=== PATIENT | male | born 1970 | race Caucasian/White ===

== ENCOUNTER 2019-12-16 03:45 | Emergency (ER) | payer SELFPAY ==
--- NOTE | ~2019-12-16 | CT_ITS ---
EXAMINATION: CT brain wo con INDICATION: Right arm and leg weakness, ectasia COMPARISON: None TECHNIQUE: Standard unenhanced head CT. The dose-length product (DLP) was 908.00 mGy-cm. The mA was a djusted according to patient size. Iterative reconstruction technique was employed. FINDINGS: Motion artifact mildly limits the examination. There is questionable hyperdense left middle cerebral artery sign with possible loss of arcos-white differentiation in the left temporal lobe and left middle cerebral artery distribution. Hypoattenuation in the right cerebellum likely reflects dony or infarction. There is no intracranial hemorrhage or abnormal mass lesion. The ventricles are normal . There is no abnormal mass effect or midline shift. The basal cisterns are patent. The orbits are no rmal. The paranasal sinuses, mastoids and calvarium are normal. IMPRESSION: 1. Possible left middle cerebral artery distribution infarction. These findings were discussed with Aram Alvarez MD in the Emergency Department at 0443 hours on 12/16/2019 by the [employer] gist. Reviewed, dictated and finalized at location A. IMPRESSION: 1. Possible left middle cerebral artery distribution infarction. These findings were discussed with Dr. Juliocesar Alvarez MD in the Emergency Department at 0 443 hours on 12/16/2019 by the [employer] Radiologist.
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
[2019-12-16 03:45] VITALS: BP 148/88; PULSE 79; RESP 20; TEMP 35.9; O2SAT 97
--- NOTE | 2019-12-16 03:56 | ECG_ITS ---
Measurements Intervals [place] Rate: 75 P: 39 [place]: 152 QRS: 42 QRSD: 107 T: 83 QT: 376 QTc: 423 Interpretive Statements SINUS RHYTHM BORDERLINE T WAVE ABNORMALITY- LATERAL LEADS BASELINE ARTIFACT- I, II, III, AVR, AVL, AVF, V4-V5 BORDERLINE ECG Electronically Signed On 12-16-2019 8:02:44 CDT by Prakash Travis D.O.
[2019-12-16 04:19] LABS: INR 1.1; Partial Thromboplastin Time 22.6 SEC (22.3-31.6); Prothrombin Time 10.9 Seconds (9.64-11.0)
[2019-12-16 04:19] LABS: Add Urine Microscopic? NO; Appearance Urine Clear (Clear); Bilirubin Urine Negative (Negative); Blood Urine Negative (Negative); Color Urine Yellow (Yellow); Glucose Urine UA Negative (Negative); Ketones Urine Negative (Negative); Leukocyte Esterase Ur Negative LEU/UL (Negative); Nitrate Urine Negative (Negative); Protein Urine Negative (Negative); Specific Grav Ur >= 1.030 (1.010-1.020); pH Urine 5.5 (5.0-8.0)
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
[2019-12-16 04:20] LABS: Basophils Absolute Auto 0.03 K/mm3 (0.00-0.10); Basophils Percent Auto 0.5 % (0.0-1.0); Eosinophils Absolute Auto 0.11 K/mm3 (0.02-0.50); Eosinophils Percent Auto 1.7 % (1.0-6.0); Hematocrit 44.7 % (40.0-54.0); Hemoglobin 15.5 g/dL (14.0-18.0); Immature Granulocyte Absolute 0.06 K/mm3 (0.00-0.00); Immature Granulocyte Percent A 0.9 % (0.0-0.0); Lymphocytes Absolute Auto 2.78 K/mm3 (1.10-4.50); Lymphocytes Percent Auto 43.3 % (18.0-42.0); Mean Corpuscular HGB Conc 34.7 g/dL (32.0-36.0); Mean Corpuscular Hemoglobin 32.8 pg (27.0-31.0); Mean Corpuscular Volume 94.7 fL (78.0-102.0); Mean Platelet Volume 11.4 fl (8.7-11.0); Monocytes Absolute Auto 0.51 K/mm3 (0.10-0.90); Monocytes Percent Auto 7.9 % (2.0-11.0); Neutrophils Absolute Auto 2.9 K/mm3 (1.7-7.2); Neutrophils Percent Auto 45.7 % (50.0-70.0); Platelet Count Result 189 K/mm3 (150-420); Red Blood Count 4.72 M/mm3 (4.70-6.10); White Blood Count 6.4 K/mm3 (4.8-10.8)
[2019-12-16 04:22] VITALS: BP 148/88; PULSE 79; RESP 20; O2SAT 97
[2019-12-16 04:25] LABS: Lactic Acid 1.6 mmol/L (0.4-2.0)
[2019-12-16 04:34] LABS: Amphetamine Screen Urine Negative (Negative); Barbiturate Screen Urine Negative (Negative); Benzodiazepines Screen Urine Negative (Negative); Cannabinoid Screen Urine Negative (Negative); Cocaine Screen Urine Negative (Negative); Methadone Screen Urine Negative (Negative); Opiate Screen Urine Negative (Negative); Phencyclidine Screen Urine Negative (Negative)
[2019-12-16 04:35] LABS: Alanine Aminotransferase 40 U/L (16-63); Albumin Level 4.1 g/dL (3.4-5.0); Alkaline Phosphatase 72 U/L (46-116); Anion Gap 16.9 mmol/L (7-16); Aspartate Amino Transferase 21 U/L (15-37); Bilirubin,Total 0.3 mg/dL (0.00-1.00); Calcium 8.7 mg/dL (8.5-10.1); Carbon Dioxide 24 mmol/L (21-32); Chloride 107 mmol/L (98-108); Estimated Glomerular Filt Rate > 60; Glucose 115 mg/dL (70-99); Potassium 3.9 mmol/L (3.5-5.1); Sodium 144 mmol/L (136-145)
[2019-12-16 04:42] LABS: Acetaminophen 0 ug/mL (10-30); Ethanol < 3 mg/dL (0-6); Salicylate 2.1 mg/dL (2.8-20.0)
--- NOTE | 2019-12-16 04:48 | PC.NURSE ---
call to [facility] for stat stroke, spoke with celi, report given .
[2019-12-16 04:49] LABS: Blood Urea Nitrogen 19 mg/dL (7-18); Osmolality Calculated 301 mOsm/kg (285-295)
[2019-12-16 04:50] LABS: Ethanol < 3 mg/dL (0-6); Troponin I < 0.02 ng/mL (0.00-0.056)
[2019-12-16 05:34] VITALS: BP 155/83; PULSE 92; RESP 16; TEMP 36.6; O2SAT 97
[2019-12-16] MEDS: SODIUM CHLORIDE 0.9% IV 1,000 ML 50 ML IV CONT (05:43)
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
[2019-12-16 06:27] VITALS: BP 153/89; PULSE 85; RESP 16; TEMP 36.6; O2SAT 100
--- NOTE | 2019-12-20 14:26 | ED.NEUROSD ---
HPI - Neuro Symptoms/Deficit General Chief Complaint: Suspected CVA Stated Complaint: stroke Time Seen by Provider: 12/16/19 03:55 Source: patient Mode of arrival: EMS Limitations: altered mental status History of Present Illness Location: right face, right arm and right leg Severity: severe Quality: weak Treatments Prior to Arrival: none Related Data Home Medications Medication Instructions Recorded Confirmed Unable to Obtain Home Medications 12/16/19 12/16/19 Allergies Allergy/AdvReac Type Severity Reaction Status Date / Time Unable to Assess Allergy Verified 12/16/19 06:34 Review of Systems Review of Systems: ROS unobtainable: Yes unobtainable due to medical condition and unobtainable due to mental status PMFSH Comments Unable to obtain PHSH due to mental status and aphasia. Exam Const: General: no acute distress Limitations: other limitations (Aphasia) HENMT: Ears: TM's normal bilaterally and EAC's normal Mouth: Yes Normal oral and palatal mucosa present and Yes moist mucous membranes Throat: posterior oropharynx normal Eyes: Conjunctivae: conjunctivae normal Pupils: Equal, round and reactive pupils present EOM: EOMs intact bilaterally Other: Left-regalado gaze deviation Resp: Effort & Inspection: normal respiratory effort, not labored and no retractions Auscultation: no rales, no rhonchi, wheezes expiratory wheezes (late) and diminished lung sounds bilateral and diffuse Cardio: Rate: regular rate Rhythm: regular rhythm Heart sounds: no murmurs GI: GI Palp: Yes Soft to palpation and No Tenderness to palpation present (GI) Skin: General skin exam: normal color, no jaundice and no pallor Rashes: no rashes Neuro: Other: Mild right facial droop. Patient has minimal movement of the right toes to command but no other movement. He has no movement of his right upper extremity. He has purposeful movement of his left upper extremity in his left leg. Extrem: General: normal to inspection and no clubbing, cyanosis or edema Psych: Appearance: grossly normal and well kempt Course Vital Signs Vital signs: Vital Signs Temperature 35.9 C L 12/16/19 03:45 Pulse Rate 79 12/16/19 03:45 Respiratory Rate 20 12/16/19 03:45 Blood Pressure 148/88 H 12/16/19 03:45 Pulse Oximetry 97 12/16/19 03:45 Temperature 36.6 C 12/16/19 06:27 Pulse Rate 85 12/16/19 06:27 Respiratory Rate 16 12/16/19 06:27 Blood Pressure 153/89 H 12/16/19 06:27 Pulse Oximetry 100 12/16/19 06:27 MDM - Neuro Symptoms/Deficit MDM Narrative Medical decision making narrative: Discussed patient with Dr. Rushing, stroke team at [facility]. He recommended administration of tPa and transfer to [facility]. Differential Diagnosis Differential diagnosis: Likely convulsions, subarachnoid hemorrhage, cerebrovascular accident and transient cerebral ischemia Lab Data Result diagrams: 12/16/19 04:06 12/16/19 04:07 Labs: Lab Results 12/16/19 12/16/19 12/16/19 Range/Units 03:56 04:06 04:06 WBC 6.4 (4.8-10.8) K/mm3 RBC 4.72 (4.70-6.10) M/mm3 Hgb 15.5 (14.0-18.0) g/dL Hct 44.7 (40.0-54.0) % MCV 94.7 (78.0-102.0) fL MCH 32.8 H (27.0-31.0) pg MCHC 34.7 (32.0-36.0) g/dL RDW 12.0 (11.6-14.4) % Plt Count 189 (150-420) K/mm3 MPV 11.4 H (8.7-11.0) fl Immature Gran % (Auto) 0.9 H (0.0-0.0) % Neut % (Auto) 45.7 L (50.0-70.0) % Lymph % (Auto) 43.3 H (18.0-42.0) % Weber % (Auto) 7.9 (2.0-11.0) % Eos % (Auto) 1.7 (1.0-6.0) % Baso % (Auto) 0.5 (0.0-1.0) % Lymph # (Auto) 2.78 (1.10-4.50) K/mm3 Weber # (Auto) 0.51 (0.10-0.90) K/mm3 Eos # (Auto) 0.11 (0.02-0.50) K/mm3 Baso # (Auto) 0.03 (0.00-0.10) K/mm3 Abs Immat Gran (auto) 0.06 H (0.00-0.00) K/mm3 Absolute Neuts (auto) 2.9 (1.7-7.2) K/mm3 Absolute Nucleated RBC 0.00 (0.00-0.00) K/mm3 Nucleated RBC % 0.0 (0-0.0) % PT 10.9
== END 2019-12-16 06:20 | disposition short-term general hospital (02) ==
PROVIDERS: Emergency Provider Emergency Medicine
DX: I63.9 Cerebral infarction, unspecified (principal)
CPT/HCPCS: 36415; 70450; 71045; 72125; 80053; 80307; 81003; 83605; 84484; 85025; 85610; 85730; 87040; 87086; 93005; 96361; 96374; 99284; 99285; J2997; J7030

== ENCOUNTER 2020-06-07 12:10 | Outpatient (CLI) | payer OTHER, MEDICAID, SELFPAY ==
--- NOTE | ~2020-06-07 | MR_ITS ---
EXAMINATION: MR lumbar spine wo con DATE: 06/07/2020 13:46 INDICATION: Low back pain. TECHNIQUE: Magnetic resonance imaging (MRI) of the lumbar spine was performed without intravenous con trast. Sequences included sagittal T2-weighted FSE, sagittal T2-weighted FS FSE, sagittal T1-weighted FSE, and axial T2-weighted FSE. COMPARISON: Chest single view 12/16/2019 FINDINGS: There is 5 degrees levocurvature of lumbar spine. L5 is a transitional segment. There is 3 mm retrolisthesis of L4 on L5. There is mild chronic anterior wedging of T12 and L1. There is mildly decreased disc height at L1-L2, severely decreased disc height at L2-L3, mildly decreased disc height at L3-L4, and severely decreased disc height at L4-L5. The distal spinal cord signal intensity is no rmal. The conus medullaris is at T12. The following disc levels are specifically discussed: L1-L2: The disc is bulging. There is mild right and moderate left facet joint osteoarthritis. There i s mild bilateral neural foraminal stenosis. There is no central canal stenosis. L2-L3: The disc is bulging and has an annular fissure. There is mild bilateral facet joint osteoarthr itis. There is moderate right and mild left neural foraminal stenosis. There is mild central canal st enosis. L3-L4: The disc is bulging. There is mild bilateral facet joint osteoarthritis. There is mild bilater al neural foraminal stenosis. There is mild central canal stenosis. L4-L5: The disc is bulging and has an annular fissure. There is mild bilateral facet joint osteoarthr itis. There is moderate bilateral neural foraminal stenosis. There is mild central canal stenosis. L5-S1: The disc does not extend beyond the endplate margin. There is no facet joint osteoarthritis. T here is no neural foraminal stenosis. There is no central canal stenosis. IMPRESSION: 1. Severe lumbar spondylosis. Reviewed, dictated and finalized at location A.
== END 2020-06-07 12:11 | disposition home or self-care (01) ==
PROVIDERS: PCP Family Medicine; Visit Provider Family Medicine
DX: M47.816 Spondylosis without myelopathy or radiculopathy, lumbar region (principal)
CPT/HCPCS: 72148

== ENCOUNTER 2020-06-26 12:16 | Outpatient (CLI) | payer OTHER, MEDICAID, SELFPAY ==
--- NOTE | ~2020-06-26 | MR_ITS ---
EXAMINATION: MR cervical spine wo con EXAM DATE: 06/26/2020 13:40 INDICATION: Radiculopathy. TECHNIQUE: Multi-sequential, multiplanar MR images of the cervical spine were obtained without contra st. Axial T2, axial T2 MERGE sequence. Sagittal T1, T2, T2 fat saturation images also obtained. Th ere is no prior study for comparison. FINDINGS: There is moderate disc disease at C5-6 and C6-7 with reversal of cervical curvature at the se levels. There is 2 mm retrolisthesis C3 on C4. The vertebral bodies are otherwise aligned. Mild to moderate disc disease at C3-4 and 4-5. The spinal cord signal intensity and intrinsic morphology is normal. Cervicomedullary junction is normal in appearance. There are no suspicious marrow signal abno rmalities. Paraspinal soft tissue is unremarkable. Level by level evaluation: C2-C3: Disc does not extend beyond the endplate margin. Uncovertebral joint arthropathy: None. Facet joint arthropathy: Mild to moderate. Neural foraminal stenosis: No stenosis. Central canal stenosis: No stenosis. C3-C4: There is a mild diffuse disc bulge. Uncovertebral joint arthropathy: Mild bilateral. Facet joint arthropathy: Mild to moderate. Neural foraminal stenosis: No stenosis. Central canal stenosis: No stenosis. C4-C5: There is a mild diffuse disc bulge. Uncovertebral joint arthropathy: Mild to moderate. Facet joint arthropathy: Mild. Neural foraminal stenosis: Mild right. Central canal stenosis: Mild. C5-C6: There is a mild diffuse disc bulge. Uncovertebral joint arthropathy: Mild to moderate. Facet joint arthropathy: Mild. Neural foraminal stenosis: Mild right. Central canal stenosis: No stenosis. C6-C7: There is a mild diffuse disc bulge. Uncovertebral joint arthropathy: Mild to moderate. Facet joint arthropathy: None. Neural foraminal stenosis: No stenosis. Central canal stenosis: No stenosis. C7-T1: Disc does not extend beyond the endplate margin. Uncovertebral joint arthropathy: None. Facet joint arthropathy: Mild. Neural foraminal stenosis: No stenosis. Central canal stenosis: No stenosis. IMPRESSION: 1. Mild to moderate cervical spondylosis. 2. No significant neural foraminal or central canal stenosis. Reviewed, dictated and finalized at location B. [facility]
== END 2020-06-26 12:17 | disposition home or self-care (01) ==
PROVIDERS: PCP Family Medicine; Visit Provider Family Medicine
DX: M79.2 Neuralgia and neuritis, unspecified (principal); M47.892 Other spondylosis, cervical region
CPT/HCPCS: 72141

== ENCOUNTER 2020-07-28 03:17 | Emergency (ER) | payer OTHER, MEDICAID, SELFPAY ==
[2020-07-28 03:17] VITALS: BP 115/79; PULSE 86; RESP 16; TEMP 36.7; O2SAT 97
--- NOTE | 2020-07-28 03:19 | ED.DIZZY ---
HPI - Dizziness General Chief Complaint: Dizziness Stated Complaint: dizziness Time Seen by Provider: 07/28/20 03:19 History of Present Illness HPI Narrative: 49 yo male w/ h/o aphasia s/p CVA presents to the ED for dizziness. This reportedly happened sometime overnight. Feels like room spinning. Associated with nausea. History limited by aphasia Related Data Allergies Allergy/AdvReac Type Severity Reaction Status Date / Time Unable to Assess Allergy Verified 12/16/19 06:34 Review of Systems Review of Systems: ROS unobtainable: Yes other (unobtainable due to aphasia) [facility] Past Medical History Medical History (Updated 07/28/20 @ 06:43 by Armando Webster MD) Aphasia Stroke Comments History limited due to aphasia Exam Const: General: alert Nutritional Appearance: well nourished HENMT: Head: normal to inspection Resp: Effort & Inspection: normal respiratory effort Auscultation: clear to auscultation bilaterally Cardio: Rate: regular rate Rhythm: regular rhythm GI: GI Palp: Yes Soft to palpation and No Tenderness to palpation present (GI) Skin: General skin exam: normal color Neuro: Cranial nerves: Yes Nystagmus present Other: right sided paraplegia. severe aphasia Extrem: General: normal to inspection Course Vital Signs Vital signs: Vital Signs Temperature 36.7 C 07/28/20 03:17 Pulse Rate 86 07/28/20 03:17 Respiratory Rate 16 07/28/20 03:17 Blood Pressure 115/79 07/28/20 03:17 Pulse Oximetry 97 07/28/20 03:17 Temperature 36.7 C 07/28/20 03:17 Pulse Rate 60 07/28/20 05:35 Respiratory Rate 14 07/28/20 05:35 Blood Pressure 106/70 07/28/20 05:35 Pulse Oximetry 99 07/28/20 05:35 MDM - Dizziness Differential Diagnosis Differential diagnosis: Likely benign paroxysmal positional vertigo, vertebral basilar insufficiency, cerebrovascular accident, acute vestibular neuronitis and transient cerebral ischemia Medical Records Attestation: I reviewed the patient's medical records. Lab Data Attestation: I reviewed the patient's lab results. Result diagrams: 07/28/20 03:57 07/28/20 05:27 Labs: Lab Results 07/28/20 07/28/20 07/28/20 Range/Units 03:57 03:57 05:27 WBC 7.8 (4.5-10.0) K/mm3 RBC 4.26 L (4.6-6.20) M/mm3 Hgb 14.3 (14.0-18.0) g/dL Hct 42.7 (42.0-52.0) % MCV 100.2 H (80-100) fl MCH 33.6 (26-34) pg MCHC 33.5 (32-36) g/dl RDW 12.9 (11.5-14.5) % Plt Count 184 (150-375) k/mm3 MPV 11.3 H (7.4-10.4) fl Immature Gran % (Auto) 0.3 (0-0.5) % Neut % (Auto) 68.7 (45.5-73.1) % Lymph % (Auto) 24.6 (18.3-44.2) % [place] % (Auto) 5.1 (2.6-8.5) % Eos % (Auto) 0.9 (0-4.4) % Baso % (Auto) 0.4 (0.2-1.2) % Lymph # (Auto) 1.92 (0.9-3.2) K/mm3 [place] # (Auto) 0.4 (0.1-0.6) K/mm3 Eos # (Auto) 0.1 (0-0.3) K/mm3 Baso # (Auto) 0.0 (0.0-0.1) K/mm3 Abs Immat Gran (auto) 0.02 (0.00-0.031) K/mm3 Absolute Neuts (auto) 5.4 (1.3-6.7) K/mm3 Absolute Nucleated RBC 0.0 (0.0-0.012) K/mm3 Nucleated RBC % 0.0 (0.0-0.2) % PT 13.9 (11.1-14.7) Seconds INR 1.0 APTT 29.9 (22.3-36.8) SECONDS Sodium 140 (137-145) mmol/L Potassium 4.4 (3.4-5.0) mmol/L Chloride 106 (98-107) mmol/L Carbon Dioxide 32 H (22-30) mmol/L Anion Gap 2 L (8-16) mmol/L BUN 13 (9-20) mg/dL Creatinine 1.00 (0.7-1.3) mg/dL Estim Creat Clear Calc Not Reportable Estimated GFR > 60 (59 - ) Glucose 105 (75-110) mg/dL Calcium 8.6 (8.4-10.2) mg/dL Total Bilirubin 0.3 (0.2-1.3) mg/dL AST 29 (17-59) U/L ALT 28 (4-50) U/L Alkaline Phosphatase 64 (38-126) U/L Total Protein 6.0 L (6.3-8.2) g/dL Albumin 3.7 (3.5-5.1) g/dL Discharge Plan Discharge Clinical Impression: Vertigo Patient Disposition: Home, Self-Care Condition: Stable Instructions: Vertigo (ED) Prescription
--- NOTE | 2020-07-28 03:26 | ECG_ITS ---
Measurements Intervals [place] Rate: 89 P: 28 MI: 152 QRS: 21 QRSD: 113 T: 69 QT: 366 QTc: 446 Interpretive Statements SINUS RHYTHM INTRAVENTRICULAR CONDUCTION DELAY MINIMAL Q WAVES- INFERIOR LEADS BORDERLINE T WAVE ABNORMALITY- HIGH LATERAL LEADS BASELINE WANDER- I, II BORDERLINE ECG Electronically Signed On 07-28-2020 7:01:00 [employer]APE [employer] by Prakash Travis D.O.
[2020-07-28] MEDS: SODIUM CHLORIDE 0.9% IV 1,000 ML 999 ML IV CONT (03:37)
[2020-07-28] MEDS: ONDANSETRON INJ 4 MG/2 ML VIAL IV PUSH (03:37)
[2020-07-28 04:03] LABS: Basophils Percent Auto 0.4 % (0.2-1.2); Eosinophils Absolute Auto 0.1 K/mm3 (0-0.3); Eosinophils Percent Auto 0.9 % (0-4.4); Hematocrit 42.7 % (42.0-52.0); Hemoglobin 14.3 g/dL (14.0-18.0); Immature Granulocyte Absolute 0.02 K/mm3 (0.00-0.031); Immature Granulocyte Percent A 0.3 % (0-0.5); Lymphocytes Absolute Auto 1.92 K/mm3 (0.9-3.2); Lymphocytes Percent Auto 24.6 % (18.3-44.2); Mean Corpuscular HGB Conc 33.5 g/dl (32-36); Mean Corpuscular Hemoglobin 33.6 pg (26-34); Mean Corpuscular Volume 100.2 fl (80-100); Mean Platelet Volume 11.3 fl (7.4-10.4); Monocytes Absolute Auto 0.4 K/mm3 (0.1-0.6); Monocytes Percent Auto 5.1 % (2.6-8.5); Neutrophils Absolute Auto 5.4 K/mm3 (1.3-6.7); Neutrophils Percent Auto 68.7 % (45.5-73.1); Platelet Count Result 184 k/mm3 (150-375); Red Blood Count 4.26 M/mm3 (4.6-6.20); Red Cell Distribution Width 12.9 % (11.5-14.5); White Blood Count 7.8 K/mm3 (4.5-10.0)
[2020-07-28 04:14] LABS: Partial Thromboplastin Time 29.9 SECONDS (22.3-36.8); Prothrombin Time 13.9 Seconds (11.1-14.7)
[2020-07-28] MEDS: diazePAM INJ (*CRX) 10 MG/2 ML SYRINGE 5 MG IV PUSH (05:26)
[2020-07-28 05:35] VITALS: BP 106/70; PULSE 60; RESP 14; O2SAT 99
[2020-07-28 05:54] LABS: Alanine Aminotransferase 28 U/L (4-50); Albumin Level 3.7 g/dL (3.5-5.1); Alkaline Phosphatase 64 U/L (38-126); Anion Gap 2 mmol/L (8-16); Aspartate Amino Transferase 29 U/L (17-59); Bilirubin,Total 0.3 mg/dL (0.2-1.3); Blood Urea Nitrogen 13 mg/dL (9-20); Calcium 8.6 mg/dL (8.4-10.2); Carbon Dioxide 32 mmol/L (22-30); Chloride 106 mmol/L (98-107); Estimated Glomerular Filt Rate > 60; Glucose 105 mg/dL (75-110); Potassium 4.4 mmol/L (3.4-5.0); Sodium 140 mmol/L (137-145)
== END 2020-07-28 06:52 | disposition home or self-care (01) ==
PROVIDERS: Emergency Provider Emergency Medicine; PCP Family Medicine
DX: R42 Dizziness and giddiness (principal); I69.920 Aphasia following unspecified cerebrovascular disease
CPT/HCPCS: 36415; 80053; 85025; 85610; 85730; 93005; 96361; 96374; 96375; 99284; J2405; J3360; J7030

== ENCOUNTER 2020-08-21 13:30 | Outpatient (RCR) | payer MEDICAID, OTHER, SELFPAY ==
--- NOTE | 2020-05-24 13:47 | PTOPEVAL ---
PHYSICAL THERAPY EVALUATION AND PLAN OF CARE 05-24-2020 Thank you for referring Guillermo Berry to [facility].? He is scheduled to be seen for Physical Therapy 2x/week for 4 weeks. Please review, sign, date and return this plan of care ROSALINDA. I agree with and certify that the following plan of care is medically necessary. Referring Physician Date Attending Provider: Roger Mcdonald MD *PT Outpatient Evaluation F Document 05/24/20 12:30 OSWALD (Rec: 05/24/20 13:46 OSWALD [id number]) Outpatient Past Medical History Past Medical History Source of Past Medical History Patient,Family/Significant Other Neurological History Hx Cerebrovascular Accident (CVA) Yes: this admission Cardiovascular History Hx Cardiac Disorders No Significant History Respiratory History Hx Respiratory Disorders No Significant History Gastrointestinal History Hx Gastrointestinal Disorders No Significant History Genitourinary History Hx Genitourinary Disorders No Significant History Musculoskeletal History Hx Back Pain Yes: over the past year Endocrine History Hx Endocrine Disorders No Significant History HEENT History Hx Other HEENT Disorders Yes: wear glasses Evaluation Information Problem Diagnosis 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 Onset 12-16-2019 Subjective Information had surgery for the thrombus; Query Text:As Reported By Patient/ went to [place] for therapy; Family brother brought him home 6 days ago; Prior Level of Function Activity Level (Last 3 Months) Occupation regional tanker truck driver Hand Dominance Right Home Setting Home Type House,Multiple Levels Environmental Barriers Railing, None,Stairs, 2-4 Living Situation With Relatives Mobility Assistive Devices (Used Last 3 Cane, Large Based Quad Months) Orthotic/Prosthetic Devices Right Lower Extremity Orthosis Bathroom Environment Bathtub, Standard Bathing Equipment Hand Held Shower,Tub Transfer Bench Comments Additional Prior Level of Function prior to CVA, indep and active Comments without any limitations in activity level; his brother and sister in law have moved in with him to assist him; use quad cane in home, walk indep; assist with getting in/out bed due to high height of bed; in /out
--- NOTE | 2020-05-24 15:35 | OTOPEVAL ---
OCCUPATIONAL THERAPY EVALUATION REPORT 05/24/2020 Thank you for referring Guillermo Berry to [facility].? The patient is scheduled to be seen for therapy? 2x/week for 4 weeks. Please review, sign, date and return this plan of care ROSALINDA. I agree with and certify that the following plan of care is medically necessary. Referring Physician Date Admitting Provider: Attending Provider: Roger Mcdonald, MD Referring Provider: *OT Outpatient Evaluation Start: 05/24/20 14:42 Therapy Assessment Status Assessment Status Assessment Status Evaluation Outpatient Past Medical History Past Medical History Source of Past Medical History Patient,Family/Significant Other Neurological History Hx Cerebrovascular Accident (CVA) Yes: 12/16/19 Cardiovascular History Hx Cardiac Disorders No Significant History Respiratory History Hx Respiratory Disorders No Significant History Gastrointestinal History Hx Gastrointestinal Disorders No Significant History Genitourinary History Hx Genitourinary Disorders No Significant History Musculoskeletal History Hx Back Pain Yes: over the past year Endocrine History Hx Endocrine Disorders No Significant History HEENT History Hx Other HEENT Disorders Yes: wear glasses Evaluation Information Problem Diagnosis 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 Discharged to [place] for therapy, then discharged home 05/19/20. Prior Level of Function Activity Level (Last 3 Months) Occupation trailer truck driver Hand Dominance Right Home Setting Home Type House,Multiple Levels Environmental Barriers Railing, None,Stairs, 2-4 Living Situation With Relatives Mobility Assistive Devices (Used Last 3 Cane, Large Based Quad Months) Orthotic/Prosthetic Devices Right Lower Extremity Orthosis Bathroom Environment Tub/Shower, Curtain Bathing Equipment Hand Held Shower,Tub Transfer Bench Toileting Equipment None Comments Additional Prior Level of Function Prior to CVA, indep. and Comments active without any limitations in activity level. His brother and sister in law have moved in with him to assist him. Uses quad cane in home. Brother (Emeka) assists with in /out shower with transfer tub
--- NOTE | 2020-05-25 16:57 | STOPEVAL ---
SPEECH THERAPY INITIAL EVALUATION: Thank you for referring Guillermo Berry to [facility].? The patient is scheduled to be seen for therapy 2x/week for 4 weeks. Please review, sign, date and return this plan of care ROSALINDA. I agree with and certify that the following plan of care is medically necessary. Referring Physician Date Attending Provider: Roger Mcdonald, * Outpatient Evaluation Start: 05/24/20 13:55 Freq: Status: Active Protocol: Document 05/24/20 13:30 BECHERERT (Rec: 05/24/20 15:30 BECHERERT [id number]) Therapy Assessment Status Assessment Status Assessment Status Evaluation Outpatient Past Medical History Past Medical History Source of Past Medical History Patient,Family/Significant Other Neurological History Hx Cerebrovascular Accident (CVA) Yes: this admission Cardiovascular History Hx Cardiac Disorders No Significant History Respiratory History Hx Respiratory Disorders No Significant History Gastrointestinal History Hx Gastrointestinal Disorders No Significant History Genitourinary History Hx Genitourinary Disorders No Significant History Musculoskeletal History Hx Back Pain Yes: over the past year Endocrine History Hx Endocrine Disorders No Significant History HEENT History Hx Other HEENT Disorders Yes: wear glasses Evaluation Information Problem Diagnosis 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 Discharged to [place] for therapy, then discharged home 05/19/20. Pt is very pleasant and motivated to improve. Prior Level of Function Home Setting Home Type House,Multiple Levels Environmental Barriers Railing, None,Stairs, 2-4 Living Situation With Relatives Prior Swallow Level Prior Intake Method Oral Prior Diet Regular (Level 7 Diet) Prior Liquid Consistency Thin (Level 0 Diet) Prior Cognition/Communication Prior Communication Level No Impairment Prior Cognitive Function Able to Function Independently Prior Ability to Handle Finances Independent Comments Additional Prior Level of Function Prior to CVA, pt was Comments independent and active without any limitations and working as a team otr truck driver. His brother and sister in law have moved in with [place]
--- NOTE | 2020-06-06 08:37 | PCPTNOTE ---
pt called and canceled today's treatment session.
--- NOTE | 2020-06-06 16:45 | PCSTNOTE ---
Patient called & cancelled scheduled appointment this date due to illness.
--- NOTE | 2020-06-08 11:35 | PCPTNOTE ---
pt called and canceled today's appt due to a in family;
--- NOTE | 2020-06-08 15:06 | PCSTNOTE ---
Patient called & cancelled scheduled appointment this date due to illness
--- NOTE | 2020-06-21 14:07 | OTOPEVAL ---
OCCUPATIONAL THERAPY RE-EVALUATION REPORT 06/21/2020 Thank you for referring Guillermo Berry to [facility].? The patient is scheduled to be seen for continued occupational therapy? 2x/week for 4 weeks. Please review, sign, date and return this plan of care ROSALINDA. I agree with and certify that the following plan of care is medically necessary. Referring Physician Date Referring Provider: Roger Mcdonald, MD *OT Outpatient Evaluation Evaluation Information Problem Diagnosis CVA Onset 12-16-2019 Additional Evaluation Detail Guillermo has participated in the initial evaluation and only 3 subsequent treatment sessions due to cancellations for illness and having a in the family. Pain Assessment Timing of Pain Assessment Timing of Pain Assessment Re-assessment Pain Scale Pain Scale Used Numeric (1 - 10) Self Report Pain Assessment Right Shoulder(s) Reported Pain Level 4 Pain Description Aching Pain Score Pain Score 4: Self Report Interventions Used Interventions Used By Clinicians Exercise Upper Extremity Range of Motion Elbow/Forearm Range of Motion Right Elbow/Forearm Range of Motion Comments In a gravity eliminated position, patient is able to flex his elbow 60* and extend to -20*. This improved from only trace muscle strength. He is also now able to pronate through full ROM and supinate to neutral. Wrist Range of Motion Right Wrist Flexion - Active 50 Wrist Extension - Active 50 Upper Extremity Muscle Strength Testing Scapular/Shoulder Right Shoulder Elevation - Upper Trapezius 2- Poor - Scapular Retraction - Middle Trapezius 2- Poor - Scapular Strength Comments Scapular strength improved from trace. Shoulder Flexion Strength 1 Trace Shoulder Extension Strength 2- Poor - Shoulder Abduction Strength 1 Trace Shoulder Adduction Strength 1 Trace Shoulder Medial Rotation Strength 0 Zero Shoulder Lateral Rotation Strength 0 Zero Shoulder Strength Comments (R) shoulder continues to be subluxed 1 finger width, however when patient tries to move the shoulder the gap disappears. Elbow/Forearm Right Elbow Flexion Strength 2- Poor - Elbow Extension Strength 2- Poor - Forearm Pronation Strength 3- Fair - Forearm Supination Strength 2+ Poor + Elbow/Forearm Strength Comments Elbow fl
--- NOTE | 2020-06-21 15:15 | PTOPEVAL ---
PHYSICAL THERAPY RE-EVALUATION AND UPDATED PLAN OF CARE 06-21-2020 Thank you for referring Guillermo Berry to [facility].? He is scheduled to continue with Physical Therapy? 2 x/week for 4 weeks. He and his brother report they are pleased with his progress- walking is better and getting in/out bath tub without any assistance. And he has not had any falls. Walking in the community and outings have been limited to the virus Please review, sign, date and return this updated plan of care ROSALINDA. I agree with and certify that the following plan of care is medically necessary. Referring Physician Date Attending Provider: Roger Mcdonald MD *PT Outpatient Re-Evaluation Document 06/21/20 14:31 OSWALD (Rec: 06/21/20 15:10 OSWALD [id number]) Lower Extremity Muscle Strength Testing General Lower Extremity Strength Gross Lower Extremity Strength -sitting: R ankle: no active DF,PF or eversion; active inversion ~ 20' x 6 reps; and active toe flexion/ext ~ 50% range x 8 reps; - supine : SLR x 14 reps; heel slide to 30' knee flexion x 16 reps; bridge, with just clearing hips off mat x 21 reps; hip abduction x 13 reps Bed Mobility Assessment Bed Mobility Bed Type Mat Overall Bed Mobility Ability Independent Supine to Sit Ability Independent Sit to Supine Ability Independent Balance Assessment Tinetti Balance Assessment Sitting Balance Steady, safe Ability to Arise Able, w/o using arms Attempts to Arise Arises on 1st attempt Immediate Standing Balance Steady w/o support Standing Balance Narrow stance w/o support Nudged Response Steady Standing with Eyes Closed Steady Step Pattern Turning 360 Degrees Discontinuous steps Stability Turning 360 Degrees Unsteady, grabs/staggers Sitting Down Safe, steady Initiation of Gait No hesitancy Right Foot Step Length Does pass stance foot Right Foot Step Height Does not clear floor Left Foot Step Length Does pass stance foot Left Foot Step Height Completely clears floor Step Symmetry Step length appears equal Step Continuity Steps appear continuous Path Description Mild/moderate deviation Trunk Description Marked sway or uses aide Walking Stance Heels apart Assistive Devices Used No Tinetti Composite Score (Balance + Gait) 21 (/28) Interpretation of Scores At risk for falls (19-24) Time Up Go (TUG) Timed Up and Go Test (TUG) (Seconds) 27 Assistive Devices
--- NOTE | 2020-06-22 09:57 | STOPEVAL ---
SPEECH THERAPY PROGRESS REPORT: Thank you for referring Guillermo Berry to [facility].?The pt has demonstrated improvement within the 7 sessions that he has attended; therefore it is felt that further speech therapy is warranted. The patient is scheduled to be seen for therapy? 2x/week for 4 weeks. Please review, sign, date and return this plan of care ROSALINDA. I agree with and certify that the following plan of care is medically necessary. Referring Physician Date Attending Provider: Roger Mcdonald, * Outpatient RE Evaluation Start: 05/24/20 13:55 Freq: Status: Active Protocol: Document 06/21/20 12:30 BECHERERT (Rec: 06/22/20 09:57 BECHERERT [email or web address]) Therapy Assessment Status Assessment Status Assessment Status Re-evaluation Outpatient Past Medical History Past Medical History Source of Past Medical History Patient,Family/Significant Other Neurological History Hx Cerebrovascular Accident (CVA) Yes: 12/16/19 Cardiovascular History Hx Cardiac Disorders No Significant History Respiratory History Hx Respiratory Disorders No Significant History Gastrointestinal History Hx Gastrointestinal Disorders No Significant History Genitourinary History Hx Genitourinary Disorders No Significant History Musculoskeletal History Hx Back Pain Yes: over the past year Endocrine History Hx Endocrine Disorders No Significant History HEENT History Hx Other HEENT Disorders Yes: wear glasses Pain Assessment Timing of Pain Assessment Timing of Pain Assessment Assessment Self Report Self Report Pain Level 0 Pain Score Pain Score 0: Self Report Language Evaluation Auditory Comprehension Complex Yes/No Questions (% Accuracy (0- 70 100)) Auditory Comprehension One-Step 100 Directives (% Accuracy (0-100)) Auditory Comprehension of Two-Step 100 Directives (% Accuracy (0-100)) Auditory Comprehension of Complex 50 Directives (% Accuracy (0-100)) Response Latency Mild Deficits Factors Limiting Auditory Comprehension Aphasia,Apraxia Overall Auditory Comprehension Ability Moderate Deficits Reading Comprehension Name Recognition Yes Numeral Comprehension Comments Identify #'s in a fo3=75% accuracy Identify letters in a fo3=60% accuracy Single Word Comprehension (% Accuracy (0 100 -100)) Comprehension: 5-7 Words (% Accuracy (0- 75 100)) Reading Comprehension Comments Difficulty with # ID in fo3; however, pt is able to correctly sequence 1-20 correctly & can ID the # when the request is the written
--- NOTE | 2020-06-27 13:08 | PCOTNOTE ---
Patient's brother called & cancelled patient's scheduled appointment this date due to Guillermo having a rough night .
--- NOTE | 2020-06-27 16:59 | PCSTNOTE ---
Patient called & cancelled scheduled appointment this date due to illness]
--- NOTE | 2020-07-12 09:44 | PCOTNOTE ---
Patient called & cancelled scheduled appointment this date due to being sick.
--- NOTE | 2020-07-12 10:34 | PCPTNOTE ---
Patient called & cancelled scheduled appointment this date due to not feeling well.
--- NOTE | 2020-07-12 13:50 | PCSTNOTE ---
Patient called & cancelled scheduled appointment this date due to not feeling well
--- NOTE | 2020-07-19 12:03 | PTOPEVAL ---
PHYSICAL THERAPY DISCHARGE 07-19-2020 Refer to the clinical summary section below. Guillermo is at about the same status with his strength and mobility as he was at the last reevaluation; therefore, he will be discharged from PT at this time. And to continue with his exercises at home. Thank you for referring Guillermo Berry to [facility].? Please review, sign, date and return this discharge ROSALINDA. I agree with and certify that the following plan of care is medically necessary. Referring Physician Date Attending Provider: Roger Mcdonald MD *PT Outpatient Discharge Document 07/19/20 11:05 OSWALD (Rec: 07/19/20 11:55 OSWALD [id number]) Subjective Information Guillermo reports: no falls, use Query Text:As Reported By Patient/ quad cane all time; Family comfortable with walking around house-- not going out due to COVID restrictions; doing home exercises every few days, not doing every day; Pain Assessment Timing of Pain Assessment Timing of Pain Assessment Assessment Pain Scale Pain Scale Used Numeric (1 - 10) Self Report Pain Assessment Right Shoulder(s) Reported Pain Level 2 Pain Frequency Chronic Pain Score Pain Score 2: Self Report Interventions Used Interventions Used By Clinicians Education Other Alleviating Interventions R arm pain due to weakness/CVA ; also low back pain Lower Extremity Muscle Strength Testing General Lower Extremity Strength Gross Lower Extremity Strength R LE functional strength: SLR to ~ 45' hip flexion x 13 reps ; heel slides x 8 reps; bridge ~ 4 lift hips off mat x 20 reps; sitting R ankle: DF to ~ (-10' ) x 3 reps; PF from 20' to 40' x 6 reps, inversion to ~20' x 9 reps; eversion- no active motion; toe flex/ext ~ 50% range x 6 reps; Balance Assessment Tinetti Balance Assessment Sitting Balance Steady, safe Ability to Arise Able, w/o using arms Attempts to Arise Arises on 1st attempt Immediate Standing Balance Steady w/o support Standing Balance Narrow stance w/o support Nudged Response Steady Standing with Eyes Closed Steady Step Pattern Turning 360 Degrees Discontinuous steps Stability Turning 360 Degrees Unsteady, grabs/staggers Sitting Down Safe, steady Initiation of Gait No hesitancy Right Foot Step Length Does pass stance foot Right Foot Step Height
[2020-07-19 13:32] VITALS: BP_SYST 80
--- NOTE | 2020-07-19 13:55 | STOPEVAL ---
SPEECH THERAPY PROGRESS REPORT AND POC UPDATE: Thank you for referring Guillermo Berry to [facility][Note 3].?Guillermo has completed 13 speech therapy sessions. He has exhibited improvement; although, it is minimal and inconsistent. It is felt should continue with speech therapy?2x/week for 4 weeks. Please review, sign, date and return this plan of care ROSALINDA. I agree with and certify that the following plan of care is medically necessary. Referring Physician Date Attending Provider: Roger Mcdonald, * Outpatient Evaluation Start: 05/24/20 13:55 Freq: Status: Active Protocol: Document 07/19/20 12:35 BECHERERT (Rec: 07/19/20 13:55 BECHERERT [email or web address]) Therapy Assessment Status Assessment Status Assessment Status Re-evaluation Outpatient Past Medical History Past Medical History Source of Past Medical History Patient,Family/Significant Other Neurological History Hx Cerebrovascular Accident (CVA) Yes: 12/16/19 Cardiovascular History Hx Cardiac Disorders No Significant History Respiratory History Hx Respiratory Disorders No Significant History Gastrointestinal History Hx Gastrointestinal Disorders No Significant History Genitourinary History Hx Genitourinary Disorders No Significant History Musculoskeletal History Hx Back Pain Yes: over the past year Endocrine History Hx Endocrine Disorders No Significant History HEENT History Hx Other HEENT Disorders Yes: wear glasses Pain Assessment Timing of Pain Assessment Timing of Pain Assessment Assessment Self Report Self Report Pain Level 0 Pain Score Pain Score 0: Self Report Language Evaluation Auditory Comprehension Body Part Identification (% Accuracy (0- 100 100)) Object Identification (% Accuracy (0-100 100 )) Simple Yes/No Questions (% Accuracy (0- 100 100)) Moderate Yes/No Questions (% Accuracy (0 90 -100)) Complex Yes/No Questions (% Accuracy (0- 50 100)) Auditory Comprehension One-Step 100 Directives (% Accuracy (0-100)) Auditory Comprehension of Two-Step 100 Directives (% Accuracy (0-100)) Auditory Comprehension of Complex 50 Directives (% Accuracy (0-100)) Response Latency Mild Deficits Overall Auditory Comprehension Ability Moderate Deficits Additional Auditory Comprehension Pt is showing progression; Comments however, it is inconsistent. Reading Comprehension Comprehension: 5-7 Words (% Accuracy (0- 100 100)) Comprehension: 8-10 Words (% Accuracy (0 25 -100)) Response Latency Mild Deficits Factors Limiting Reading Comprehension Aphasia,Apraxia Overall Reading Comprehension Ability Moderate Deficits Verbal Expression
--- NOTE | 2020-07-19 14:26 | OTOPEVAL ---
OCCUPATIONAL THERAPY RE-EVALUATION AND DISCHARGE 07/19/2020 Patient presents for OT re-evaluation. The (R) UE has not made any functional improvements with ROM or strength since the last re-evaluation from 06/21/20. Unfortunately the patient is not motivated to complete his home exercise program. Reviewed HEP and issued another copy. It is recommended that the patient continue to complete his home exercise program regularly. D/C skilled OT services a this time. Thank you for referring Guillermo Berry to [facility].? Please review, sign, date and return this D/C Note ROSALINDA. I agree with and certify that the following plan of care is medically necessary. Referring Physician Date Admitting Provider: Attending Provider: Roger Mcdonald, Referring Provider: *OT Outpatient Evaluation Start: 05/24/20 14:42 Evaluation Information Problem Diagnosis CVA Onset 12-16-2019 Subjective Information Guillermo reports that he has Query Text:As Reported By Patient/ not been completing his home Family exercise program. He feels as though his arm has gotten a little stronger over the past month. Pain Assessment Timing of Pain Assessment Timing of Pain Assessment Re-assessment Pain Scale Pain Scale Used Numeric (1 - 10) Self Report Pain Assessment Right Shoulder(s) Reported Pain Level 3 Pain Description Soreness Pain Score Pain Score 3: Self Report Interventions Used Interventions Used By Clinicians Education,Exercise Upper Extremity Range of Motion Scapular/ Shoulder Range of Motion Right Scapular: Retraction Minimal AROM Scapular: Protraction Minimal AROM Scapular Downward Rotation Minimal AROM Scapular Upward Rotation Minimal AROM Shoulder Flexion - Active 0 Shoulder Flexion - Passive 90 Shoulder Extension - Active 10 Shoulder Extension - Passive 30 Shoulder Abduction - Active 0 Shoulder Abduction - Passive 80 Scapular/Shoulder Range of Motion No change in AROM of the right Comments shoulder. Elbow/Forearm Range of Motion Right Elbow/Forearm Range of Motion Comments In a gravity eliminated position, patient is able to flex his elbow 80*. No active extension noted today. No improvement noted in the elbow . Reduced extension since last re-eval. Wrist Range of Motion Right Wrist Flexion - Active 30 Wrist Extension - Active 45 Wrist Range of Motion Comments Reduced AROM of the right wrist since last re-evaluation . Upper Extremity Muscle Strength Testing Scapular/Shoulder Right
--- NOTE | 2020-07-28 11:55 | PCSTNOTE ---
On 07-27-20 Patient called & cancelled scheduled appointment this date due to illness.
--- NOTE | 2020-07-28 12:50 | PCSTNOTE ---
Patient did not show up for scheduled appointment this date. Upon calling pt's poa, it was learned that he was brought to the ER this morning. POA was not very informative but it was learned that he was not admitted. POA stated that she was aware that he has appts scheduled for next week and that he would be at appt. ER records did indicate pt was brought in for dizziness.
--- NOTE | 2020-08-04 12:41 | PCSTNOTE ---
Patient called & cancelled scheduled appointment this date due to illness
--- NOTE | 2020-08-14 15:19 | PCSTNOTE ---
Patient called & cancelled scheduled appointment this date due to no transportation.
--- NOTE | 2020-08-16 15:44 | STOPEVAL ---
SPEECH THERAPY PROGRESS NOTE AND POC UPDATE: Thank you for referring Guillermo Berry JrSaira to [facility].? The patient is scheduled to be seen for therapy? 2x/week for 4 weeks. Please review, sign, date and return this plan of care ROSALINDA. I agree with and certify that the following plan of care is medically necessary. Referring Physician Date Attending Provider: Roger Mcdonald, * Outpatient RE-Evaluation Start: 05/24/20 13:55 Freq: Status: Active Protocol: Document 08/16/20 10:57 BECADDIERT (Rec: 08/16/20 12:14 BECHERERT [email or web address]) Therapy Assessment Status Assessment Status Assessment Status Re-evaluation Outpatient Past Medical History Past Medical History Source of Past Medical History Patient,Family/Significant Other Neurological History Hx Cerebrovascular Accident (CVA) Yes: 12/16/19 Cardiovascular History Hx Cardiac Disorders No Significant History Respiratory History Hx Respiratory Disorders No Significant History Gastrointestinal History Hx Gastrointestinal Disorders No Significant History Genitourinary History Hx Genitourinary Disorders No Significant History Musculoskeletal History Hx Back Pain Yes: over the past year Endocrine History Hx Endocrine Disorders No Significant History HEENT History Hx Other HEENT Disorders Yes: wear glasses Pain Assessment Timing of Pain Assessment Timing of Pain Assessment Assessment Self Report Self Report Pain Level 0 Pain Score Pain Score 0: Self Report Language Evaluation Auditory Comprehension Response Latency Mild Deficits Factors Limiting Auditory Comprehension Aphasia,Apraxia Overall Auditory Comprehension Ability Mild/Mod Additional Auditory Comprehension Accuracy in responses to multi Comments unit yes/no questions is inconsistent. pt was able to follow a multi unit directive with goal accuracy of 60%; pt appeared to struggle on this date with body part ID. Reading Comprehension Name Recognition Yes Numeral Comprehension Comments ID #'[email or web address] [id number]: 80% Response Latency Mild Deficits Factors Limiting Reading Comprehension Aphasia,Apraxia Overall Reading Comprehension Ability Moderate Deficits Comments Related to Reading comprehension of reading 8-9 Comprehension word directives is 75% accuracy Verbal Expression Automatic Speech Ability mod/severe [place] Speech Severe Deficits Confrontational Naming (% Accuracy (0- 30 100)) Confrontational Naming Comments pt responds with approximately 50% success to phonemic
--- NOTE | 2020-08-23 11:48 | PCSTNOTE ---
This treatment is being continued on visit number [id number]. Please see documentation on both accounts to view progress. Completed interventions, outcomes, and problems have been marked as Inactive to facilitate the copying of the Care plan routine for recurring accounts.
== END 2020-08-22 23:59 | disposition home or self-care (01) ==
LOC: ANHST 13:30
PROVIDERS: Visit Provider Family Medicine
DX: I63.312 Cerebral infarction due to thrombosis of left middle cerebral artery (principal); I69.318 Other symptoms and signs involving cognitive functions following cerebral infarction; I69.320 Aphasia following cerebral infarction; G81.91 Hemiplegia, unspecified affecting right dominant side; R26.89 Other abnormalities of gait and mobility
CPT/HCPCS: 92507; 92523; 97014; 97110; 97112; 97116; 97140; 97161; 97165; 97530; G0283

== ENCOUNTER 2020-09-13 12:30 | Outpatient (RCR) | payer BC, MEDICAID, SELFPAY ==
[2020-08-23 00:03] VITALS: BP_SYST 80
--- NOTE | 2020-08-23 11:47 | PCSTNOTE ---
The treatment documented on this account is a continuation of the treatment documented on visit number [id number]. Please see documentation on both accounts to view progress. The Plan of Care has been transitioned and updated within the new V#. I have addressed and agree with the discipline specific Problems, Interventions, and Goals for the current certification period. Completed interventions, outcomes, and problems have been marked as Inactive to facilitate the copying of the Care plan routine for recurring accounts.
--- NOTE | 2020-09-13 14:43 | STOPEVAL ---
OUTPATIENT SPEECH THERAPY DISCHARGE: Mr Berry's initial visit was on 05/24/2020. He has received a total of 26 speech therapy visits. At this time, upon this reassessment, pt appears to have plateaued across all modalities of language. Progress at this time is not consistent. 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 The goals have been partially met. Thank you for referring this patient to [facility]. Please review, sign, date and return this discharge summary ROSALINDA. I have been updated about the patient's current status and I agree with discharge from the above service at this time. Date Attending Provider: Roger Mcdonald, * Outpatient RE Evaluation/Discharge Start: 08/23/20 11:49 Freq: Status: Active Protocol: Document 09[facility]13/20 12:30 [facility] (Rec: 09/13/20 14:39 [facility] [id number]) Therapy Assessment Status Assessment Status Assessment Status Discharge Outpatient Past Medical History Past Medical History Source of Past Medical History Patient,Family/Significant Other Neurological History Hx Cerebrovascular Accident (CVA) Yes: 12/16/19 Cardiovascular History Hx Cardiac Disorders No Significant History Respiratory History Hx Respiratory Disorders No Significant History Gastrointestinal History Hx Gastrointestinal Disorders No Significant History Genitourinary History Hx Genitourinary Disorders No Significant History Musculoskeletal History Hx Back Pain Yes: over the past year Endocrine History Hx Endocrine Disorders No Significant History HEENT History Hx Other HEENT Disorders Yes: wear glasses Pain Assessment Timing of Pain Assessment Timing of Pain Assessment Assessment Self Report Self Report Pain Level 0 Pain Score Pain Score 0: Self Report Language Evaluation Auditory Comprehension Complex Yes/No Questions (% Accuracy (0- 90 100)) Auditory Comprehension of Complex 70 Directives (% Accuracy (0-100)) Factors Limiting Auditory Comprehension Aphasia Additional Auditory Comprehension Improving comprehension in Comments questions but not consistent with directives Reading Comprehension Comprehension: 8-10 Words (% Accuracy (0 70 -100)) Verbal Expression Comments Related to Verbal Expression Consistent progess not exhibited at this time. Pt requires many repetitions and max cues at times. Written Expression Comments Related to Written Expression writing 2-4 letter words to dictation: 70% accuracy; Overall consistent and any significant progress has not been exhibited ST Clinical Summary Clinical Summary ST Clinical Summary
== END 2020-09-14 13:42 | disposition home or self-care (01) ==
LOC: ANHST 12:30
PROVIDERS: PCP Family Medicine; Visit Provider Family Medicine
DX: I63.312 Cerebral infarction due to thrombosis of left middle cerebral artery (principal); I69.351 Hemiplegia and hemiparesis following cerebral infarction affecting right dominant side; I69.320 Aphasia following cerebral infarction; I69.318 Other symptoms and signs involving cognitive functions following cerebral infarction; R26.89 Other abnormalities of gait and mobility; R27.8 Other lack of coordination
CPT/HCPCS: 92507; 97014; G0283

== ENCOUNTER 2020-11-23 13:30 | Outpatient (RCR) | payer OTHER, MEDICAID, SELFPAY ==
[2020-10-25 13:35] VITALS: BP_SYST 100
--- NOTE | 2020-10-25 13:47 | STOPEVAL ---
Outpatient Speech Therapy Evaluation/Discharge: Thank you for referring Guillermo Berry to [facility].? At this time, ST is not warranted as current level of ability is unfortunately consistent with recent discharge level (within 6-8 weeks ago. [facility] was recommended to the pt as a potential option for continued ST. I agree with and certify that the following evaluation/discharge. Referring Physician Date Attending Provider: Roger Mcdonald, *ST Outpatient Evaluation Therapy Assessment Status Assessment Status Assessment Status Evaluation Outpatient Past Medical History Past Medical History Source of Past Medical History Patient Neurological History Hx Cerebrovascular Accident (CVA) Yes: 12/16/19 Cardiovascular History Hx Cardiac Disorders No Significant History Respiratory History Hx Respiratory Disorders No Significant History Gastrointestinal History Hx Gastrointestinal Disorders No Significant History Genitourinary History Hx Genitourinary Disorders No Significant History Musculoskeletal History Hx Back Pain Yes: over the past year Endocrine History Hx Endocrine Disorders No Significant History HEENT History Hx Other HEENT Disorders Yes: wear glasses Prior Level of Function Activity Level (Last 3 Months) Occupation disabled due to CVA in 11/2019 Hand Dominance Right Home Setting [employer] Responsibilities Comment Pt lives with brother and sister in law. Brother assists with transportation. Prior Swallow Level Prior Intake Method Oral Prior Diet Regular (Level 7 Diet) Prior Liquid Consistency Thin (Level 0 Diet) Comments Additional Prior Level of Function PLOF within last 3 months: Comments auditory & reading comprehension & written expression: moderate/severe impairments. Verbal expression : severe impairment. Pain Assessment Timing of Pain Assessment Timing of Pain Assessment Assessment Self Report Self Report Pain Level 0 Pain Score Pain Score 0: Self Report Language Evaluation Auditory Comprehension Body Part Identification (% Accuracy (0- 100 100)) Object Identification (% Accuracy (0-100 100 )) Simple Yes/No Questions (% Accuracy (0- 100 100)) Moderate Yes/No Questions (% Accuracy (0 40 -100)) Complex Yes/No Questions (% Accuracy (0- 60 100)) Auditory Comprehension One-Step 50 Directives (% Accuracy (0-100)) Auditory Comprehension of Two-Step 25 Directives (% Accuracy (0-100)) Response Latency Severe Deficits Factors Limi
--- NOTE | 2020-10-25 14:42 | OTOPEVAL ---
OCCUPATIONAL THERAPY INITIAL EVALUATION REPORT 10/25/2020 Thank you for referring Guillermo Berry to [facility].? The patient is scheduled to be seen for occupational therapy? 2x/week for 4 weeks. Please review, sign, date and return this plan of care ROSALINDA. I agree with and certify that the following plan of care is medically necessary. Referring Physician Date Referring Provider: Roger Mcdonald, MD *OT Outpatient Evaluation Therapy Assessment Status Assessment Status Assessment Status Evaluation Outpatient Past Medical History Neurological History Hx Cerebrovascular Accident (CVA) Yes: 12/16/19 Cardiovascular History Hx Cardiac Disorders No Significant History Respiratory History Hx Respiratory Disorders No Significant History Gastrointestinal History Hx Gastrointestinal Disorders No Significant History Genitourinary History Hx Genitourinary Disorders No Significant History Musculoskeletal History Hx Back Pain Yes: over the past year Endocrine History Hx Endocrine Disorders No Significant History HEENT History Hx Other HEENT Disorders Yes: wear glasses Evaluation Information Problem Diagnosis CVA Onset 12/16/2019 Subjective Information After patient's initial Query Text:As Reported By Patient/ hospitalization after the Family acute CVA, he spent ~4 months in a shelter. His brother moved from out of town to move in with him so he could return home. He had outpatient therapy at this clinic from Apr-Jun and was discharged for a progress plateau. He presents today with improved functional ROM and strength in the affected UE. Prior Level of Function Activity Level (Last 3 Months) Activity of Daily Living Ability Needs Some Help Indoor/Home Mobility Independent Community Mobility Independent Stairs Ability Independent Functional Cognition (Planning, Shopping Needs Some Help , Taking Medications) Cooking No Cleaning No Laundry No Shopping No Driving No Home Setting Home Type House,Multiple Levels Environmental Barriers Railing, Ascend Left,Stairs, 2 -4,Stairs, Greater than 4 Living Situation With Relatives Mobility Assistive Devices (Used Last 3 Cane, Large Based Quad Months) Bathroom Environment Shower, Curtain Bathing Equipment Grab Bars,Hand Held Shower,Tub
--- NOTE | 2020-10-25 15:25 | PTOPEVAL ---
Thank you for referring Guillermo Berry to [facility].? The patient is scheduled to be seen for therapy? 2 x/week for 4 weeks. Please review, sign, date and return this plan of care ROSALINDA. I agree with and certify that the following plan of care is medically necessary. Referring Physician Date Attending Provider: Roger Mcdonald, Physical Therapy Evaluation Diagnosis CVA Onset 12/16/19 Additional Evaluation Detail After patient's initial hospitalization after the acute CVA, he spent ~4 months in a residential. His brother moved from out of town to move in with him so he could return home. He had outpatient therapy at this clinic from Apr-Jun. Subjective Information He responds to questions with Query Text:As Reported By Patient/ yes/no or nodding. Answers Family also provided by brother. Indicates he is performing a HEP, but not consistently. He has not been using his AFO recently. Denies any falls recently. He does walk outside for short distances. Previous Treatments Previous Treatments For This Problem yes, ended PT/OT treatment Prior Level of Function Activity Level (Last 3 Months) Occupation disabled due to CVA in 11/2019 Hand Dominance Right Activity of Daily Living Ability Needs Some Help Indoor/Home Mobility Independent Community Mobility Independent Stairs Ability Independent Functional Cognition (Planning, Shopping Needs Some Help , Taking Medications) Cooking No Cleaning No Laundry No Shopping No Driving No Home Setting Home Type House,Multiple Levels Environmental Barriers Railing, Ascend Left,Stairs, 2 -4,Stairs, Greater than 4 Living Situation With Relatives [employer] Responsibilities Comment Pt lives with brother and sister in law. Brother assists with transportation. Mobility Assistive Devices (Used Last 3 Cane, Small Based Quad Months) Bathroom Environment Shower, Curtain Bathing Equipment Grab Bars,Hand Held Shower,Tub Seat With Back Toileting Equipment None Dressing Activities o
--- NOTE | 2020-11-09 11:39 | PCPTNOTE ---
Patient called & cancelled scheduled appointment this date due to power line down closing street at house, unable to leave.
--- NOTE | 2020-11-14 13:59 | PCOTNOTE ---
Late note from 11/09/20: Patient called & cancelled scheduled appointment this date due to power line down closing street at house, unable to leave.
[2020-11-23 14:05] VITALS: BP_SYST 150
--- NOTE | 2020-11-23 14:13 | OTOPEVAL ---
OCCUPATIONAL THERAPY RE-EVALUATION AND D/C NOTE 11/23/20 Guillermo presents for OT re-evaluation following 1 month of OT. Sessions have been focused on progressing the patient's home exercise program from last fall as he has been able to use theraband for resistance (compared to passive ROM HEP). At this time no functional changes/improvements have been made. The patient is currently independent with all home exercises. D/C with HEP. Thank you for referring Guillermo Berry Jr. to [facility] Please review, sign, date and return this D/C Note ROSALINDA. I agree with and certify that the following plan of care is medically necessary. Referring Physician Date Referring Provider: Roger Mcdonald, *OT Outpatient Evaluation Start: 10/25/20 13:35 Problem Diagnosis CVA Onset 12/16/19 Additional Evaluation Detail After patient's initial hospitalization after the acute CVA, he spent ~4 months in a fdc. His brother moved from out of town to move in with him so he could return home. He had outpatient therapy at this clinic from Apr-Jun. . Subjective Information Guillermo is unable to state Query Text:As Reported By Patient/ whether or not he feels his Family arm has made any changes in this past month. He does report that he signed up for a gym membership. He reports intermittent compliance with HEP. Pain Assessment Timing of Pain Assessment Timing of Pain Assessment Assessment Pain Scale Pain Scale Used Numeric (1 - 10) Self Report Pain Assessment Right Shoulder(s) Reported Pain Level 1 Pain Description Aching Pain Score Pain Score 1: Self Report Interventions Used Interventions Used By Clinicians Education Upper Extremity Range of Motion Scapular/ Shoulder Range of Motion Right Scapular: Protraction Hypomobile Scapular Downward Rotation Hypomobile Scapular Upward Rotation Hypomobile Shoulder Flexion - Active 0 Shoulder Flexion - Passive 150 Shoulder Extension - Active 40 Shoulder Abduction - Active 0 Shoulder Abduction - Passive 150 Scapular/Shoulder Range of Motion Improved passive abduction Comments from 100* to 150*. 1 finger subluxation at the GH . No improvements with active ROM. Elbow/Forearm Range of Motion Right Elbow Flexion - Active 120 Elbow Extension - Active
--- NOTE | 2020-11-23 15:48 | PTOPEVAL ---
Thank you for referring Guillermo Berry Jr. to [facility].? Guillermo has received 8 physical therapy visits to address his leg weakness, decreased mobility and decreased balance. As result of skilled therapy services he demonstrates improved balance, improved walking speed and endurance and slight changes in leg strength. He has a home exercise program and has joined a fitness to allow him to continue to progress his resistance exercise and endurance activities. He has partially achieved his therapy goals at this time. He has reached his maximal potential with skilled therapy services at this time. Will D/C skilled PT service with Guillermo to continue with home program. Please review, sign, date and return this discharge summary ROSALINDA. I agree with and certify that the following plan of care is medically necessary. Referring Physician Date Attending Provider: Roger Mcdonald, Physical Therapy Discharge Note Diagnosis CVA Onset 12/16/19 Additional Evaluation Detail After patient's initial hospitalization after the acute CVA, he spent ~4 months in a penitentiary. His brother moved from out of town to move in with him so he could return home. He had outpatient therapy at this clinic from Apr-Jun. . Subjective Information He has been using his AFO Query Text:As Reported By Patient/ without problems. He has Family joined the gym and attending 2x/wk. States he is performing his home program for his legs, but not consistently. Pain Assessment Right Shoulder(s) Reported Pain Level 1 Pain Score Pain Score 1: Self Report Lower Extremity Muscle Strength Testing General Lower Extremity Strength Reason Not Measured WNL/Left Gross Lower Extremity Strength left LE WNL except hip abd: 3/ 5 Hip Strength Right Hip Flexion Strength 3- Fair - Hip Extension Strength 2+ Poor + Hip Abduction Strength 2 Poor Hip Adduction Strength 2+ Poor + Knee Strength Right Knee Flexion Strength 2+ Poor + Knee Extension Strength 4- Good - Balance Assessment Willett Balance Assessment WILLETT Balance Evaluation Total Score (48/56 points) Comments static standing on left leg able to hold for 10 sec, right le sec 5 Time Sit to Stand Time in Seconds 20 Gait Assessment Ambulation Assistive Devices Cane, Small Base Quad Additional Ambulation Comments ambulates with or without SBQC , demonstrates decreased
--- NOTE | 2020-11-29 12:49 | PCPTNOTE ---
Spoke with pt's brother today regarding Guillermo's progress and reason for discharge. Discussed the lack of progress with strength and functional mobility. Ability to perform a home program to maintain current level of function and going to the gym 3x/wk to maintain and build his endurance.
== END 2020-11-24 12:06 | disposition home or self-care (01) ==
LOC: ANHOT 13:30
PROVIDERS: PCP Family Medicine; Visit Provider Family Medicine
DX: I61.9 Nontraumatic intracerebral hemorrhage, unspecified (principal)
CPT/HCPCS: 92523; 97014; 97110; 97116; 97140; 97162; 97166; 97530; G0283

== ENCOUNTER 2020-12-22 08:43 | Emergency (ER) | payer MEDICAID, SELFPAY ==
[2020-12-22] VITALS (15 sets, daily range): BP systolic 110–146; BP diastolic 68–94; PULSE 68–122; RESP 16–18; TEMP 36.7; O2SAT 93–100
--- NOTE | ~2020-12-22 | CT_ITS ---
EXAMINATION: CT abdomen pelvis w con EXAM DATE: 12/22/2020 09:57 INDICATION: Generalized abdominal pain for 3 days with nausea vomiting and diarrhea. TECHNIQUE: Spiral CT of the abdomen and pelvis was performed following intravenous injection of 100 m L Omnipaque 350. Axial, coronal and sagittal images of the abdomen and pelvis were reviewed. The do se-length product (DLP) for this examination was 732.58 mGy-cm. The exposure was tailored according to patient size (auto mA exposure control), and iterative reconstruction (ASIR) was used as additiona l dose reduction technique. There is no prior study for comparison. FINDINGS: There are 2 contiguous punctate 2 mm left distal ureteral stones, with mild left-sided obst ructive nephropathy and also mildly delayed nephrogram compared to contralateral side. Mild diffuse w all thickening of the bladder at the ureterovesicular junction, most likely reactive edema; transitio nal cell cancer typically more focal. No other genitourinary stones. The liver, spleen, adrenal gland s and pancreas are unremarkable. Gallbladder is unremarkable. No biliary obstruction. The prostate is unremarkable. The bladder is unremarkable. There is no retroperitoneal or pelvic lymphadenopath y. Small umbilical fat-containing hernia. The appendix is normal. Incidental note made of focal region of soft tissue density in along the ant erior wall of the duodenum measuring 1.5 cm (see axial image 51, coronal image 53). Probably small wa ll mass which should be evaluated with ERCP, possible biopsy. Please note the colonic wall is just la teral to this. Large amount of ascending and transverse colonic stool and gas. No free intraperitoneal gas. The heart is upper limits of normal in size. There are no pericardial or pleural effusions. Bibasilar l inear opacities, subsegmental atelectasis. There are no osteoblastic or osteolytic lesions identified. IMPRESSION: 1. Two left distal ureteral 2 mm stones, mild obstructive nephropathy. Mild diffuse UVJ region wall thickening most likely edema. Consider follow-up cystoscopy for direct visualization. 2. Duodenal abnormality with focal round masslike region along its anterior wall, could be a gastroi ntestinal stromal cell tumor, follow-up, or less likely lymph node external to the duodenum causing m ass effect. Recommend ERCP. Reviewed, dictated and finalized at location A. IMPRESSION: 1. Two left distal ureteral 2 mm stones, mild obstructive nephropathy. Mild di ffuse UVJ region wall thickening most likely edema. Consider follow-up cystosco py for direct visualization. 2. Duodenal abnormality with focal round masslike region along its anterior wa ll, could be a gastrointestinal stromal cell tumor, follow-up, or less likely l ymph node external to the duodenum causing mass effect. Recommend ERCP.
[2020-12-22 09:04] LABS: Basophils Percent Auto 0.1 % (0.2-1.2); Hematocrit 46.1 % (42.0-52.0); Hemoglobin 15.7 g/dL (14.0-18.0); Immature Granulocyte Absolute 0.07 K/mm3 (0.00-0.031); Immature Granulocyte Percent A 0.4 % (0-0.5); Lymphocytes Absolute Auto 1.03 K/mm3 (0.9-3.2); Lymphocytes Percent Auto 6.4 % (18.3-44.2); Mean Corpuscular HGB Conc 34.1 g/dl (32-36); Mean Corpuscular Hemoglobin 33.6 pg (26-34); Mean Corpuscular Volume 98.7 fl (80-100); Mean Platelet Volume 10.9 fl (7.4-10.4); Monocytes Absolute Auto 1.2 K/mm3 (0.1-0.6); Monocytes Percent Auto 7.4 % (2.6-8.5); Neutrophils Absolute Auto 13.7 K/mm3 (1.3-6.7); Neutrophils Percent Auto 85.7 % (45.5-73.1); Platelet Count Result 227 k/mm3 (150-375); Red Blood Count 4.67 M/mm3 (4.6-6.20); Red Cell Distribution Width 12.1 % (11.5-14.5)
[2020-12-22 09:17] LABS: Alanine Aminotransferase 23 U/L (4-50); Albumin Level 4.8 g/dL (3.5-5.1); Alkaline Phosphatase 71 U/L (38-126); Anion Gap 10 mmol/L (8-16); Aspartate Amino Transferase 32 U/L (17-59); Bilirubin,Total 0.8 mg/dL (0.2-1.3); Blood Urea Nitrogen 16 mg/dL (9-20); Carbon Dioxide 27 mmol/L (22-30); Chloride 103 mmol/L (98-107); Estimated CRCL calculation 45 ml/min; Estimated Glomerular Filt Rate 54; Glucose 142 mg/dL (75-110); Lipase 99 U/L (23-300); Potassium 4.2 mmol/L (3.4-5.0); Sodium 140 mmol/L (137-145)
--- NOTE | 2020-12-22 09:39 | ED.GENADULT ---
HPI - General Adult General Chief complaint: Nausea/Vomiting/Diarrhea Stated complaint: n/v Time Seen by Provider: 12/22/20 08:53 Source: patient, family and RN notes reviewed Mode of arrival: ambulatory Limitations: no limitations History of Present Illness HPI narrative: Patient is 50 years old white male brought to the emergency room by his brother because of nausea and vomiting over the last 3 days with some diffuse abdominal discomfort. Patient is nonverbal. The story per his brother. Patient denies any fever, chills, respiratory symptoms, chest pain, back pain. Related Data Allergies Allergy/AdvReac Type Severity Reaction Status Date / Time Unable to Assess Allergy Verified 12/16/19 06:34 Review of Systems Review of Systems: Narrative: CONSTITUTIONAL: Denies fever, chills, or sweats. CARDIOVASCULAR: Denies chest pain, palpitations, or edema. RESPIRATORY: Denies cough or dyspnea. GASTROINTESTINAL: Denies abdominal pain, nausea, vomiting, or diarrhea. GENITOURINARY: Denies dysuria or hematuria. SKIN: Denies rash or itching. MUSCULOSKELETAL: Denies back pain, joint pain, or myalgia. NEUROLOGIC: Denies headache, numbness, or weakness. PSYCHIATRIC: Denies anxiety or depression. PMFSH Past Medical History Medical History Aphasia Stroke Exam Narrative: Exam Narrative: General appearance: Well-developed, well-nourished, looks ill Skin: Normal color Head: Normocephalic, nontraumatic Eyes: Clear conjunctiva ENT: Oropharynx normal, ears normal, nose normal Neck: Supple, nontender Chest and respiratory: Airway patent, no respiratory distress, no accessory muscle use Heart: Regular rate/rhythm Abdomen: Soft, nontender, no organomegaly, quiet bowel sounds, mild tenderness left flank Vascular: Normal peripheral pulses, normal capillary refill. Musculoskeletal: Normal range of motion, nontender back Neurologic: Alert and oriented ?3, PHOTORADIO OPERATOR is normal as tested, no gross motor deficit Course Course Emergency Course: Improving Reevaluation(s) Reevaluation #1: Patient will be transferred to [facility], discussed with Dr. Fernández/the record label internship and Dr. Lema/hospitalist Date: 12/22/20 Time: 12:43 Consultations Consultation #1: Ami Date: 12/22/20 Time: 11:37 Consultation #2: Dr. Ponce Not available over the weekend Date: 12/22/20 Time: 11:58 Consultation #3: Dr. Cage Not available over the weekend Date: 12/22/20 Time: 12:00 Additional Consultation(s): Dr. Britton Transfer patient to another facility for possible duodenal mass causing obstruction Vital Signs Vital signs: Vital Signs Temperature 36.7 C 12/22/20 08:56 Pulse Rate 90 12/22/20 08:56 Respiratory Rate 18 12/22/20 08:56 Blood Pressure 146/91 H 12/22/20 08:56 Pulse Oximetry 95 12/22/20 08:56 Temperature 36.7 C 12/22/20 08:56 Pulse Rate 90 12/22/20 11:08 Respiratory Rate 17 12/22/20 11:08 Blood Pressure 140/87 12/22/20 11:08 Pulse Oximetry 96 12/22/20 11:08 Medical Decision Making MDM Narrative Medical decision making narrative: Patient presents with nausea and vomiting. Gastroenteritis, pancreatitis, kidney stone, urinary tract infection, electrolyte imbalance, dehydration. Labs, CT abdomen pelvis with IV contrast, IV fluid, ordered. Further plan to follow Differential Diagnosis Differential Diagnosis: Gastritis, pancreatitis, kidney stone, constipation, dehydration, electrolyte imbalance Vital Signs Vital Signs: Vital Signs Temperature 36.7 C 12/22/20 08:56 Pulse Rate 90 12/22/20 08:56 Respiratory Rate 18 12/22/20 08:56 Blood Pressure 146/91 H 12/22
[2020-12-22] MEDS: ONDANSETRON INJ 4 MG/2 ML VIAL IV PUSH (09:42)
[2020-12-22] MEDS: HYDROmorphone HCL INJ (*CRX) 1 MG/ML SYR 0.5 MG IV PUSH (09:42)
[2020-12-22] MEDS: SODIUM CHLORIDE 0.9% IV 1,000 ML 999 ML IV CONT ×2 (09:45→12:58)
[2020-12-22 11:35] LABS: Add Urine Microscopic? YES; Appearance Urine Clear (Clear); Bilirubin Urine Negative (Negative); Blood Urine 2+ (Negative); Color Urine Yellow (Yellow); Glucose Urine UA Negative (Negative); Ketones Urine Trace mg/dL (Negative); Leukocyte Esterase Ur Negative LEU/UL (Negative); Mucus Urine Rare /lpf; Nitrate Urine Negative (Negative); Protein Urine 1+ mg/dL (Negative); RBC Urine 51-75 /hpf (0-2)
[2020-12-22 11:57] LABS: Specific Grav Ur > 1.060 (1.001-1.035)
[2020-12-22] MEDS: KETOROLAC 30 MG/ML VIAL (*BKC) IV PUSH (12:58)
--- NOTE | 2020-12-22 19:39 | PC.NURSE ---
Called [facility] transfer line for an update, they still do not have a bed available
[2020-12-22] MEDS: SODIUM CHLORIDE 0.9% IV 1,000 ML 125 ML IV CONT (20:00)
--- NOTE | 2020-12-22 21:41 | PC.NURSE ---
Patient transferred onto hospital bed for comfort while waiting for transport to [facility]--patient tolerated well
[2020-12-23] VITALS: BP 121/69; PULSE 69; RESP 16; TEMP 36.6; O2SAT 94
[2020-12-23] MEDS: KETOROLAC 15 MG/ML VIAL (*BKC) IV PUSH ×2 (01:10→07:29)
--- NOTE | 2020-12-23 01:28 | PC.NURSE ---
Called [facility] transfer line for an update on a bed for the patient. They reported there will be no beds available [facility]
[2020-12-23 04:29] VITALS: BP 110/62; PULSE 87; RESP 16; O2SAT 94
[2020-12-23] MEDS: SODIUM CHLORIDE 0.9% IV 1,000 ML 125 ML IV CONT (05:00)
--- NOTE | 2020-12-23 08:05 | PC.NURSE ---
Urinated via urinal. Flecks the size of sand noted in strainer.
[2020-12-23 09:12] LABS: Basophils Percent Auto 0.2 % (0.2-1.2); Eosinophils Percent Auto 0.3 % (0-4.4); Hematocrit 38.1 % (42.0-52.0); Hemoglobin 12.6 g/dL (14.0-18.0); Immature Granulocyte Absolute 0.04 K/mm3 (0.00-0.031); Immature Granulocyte Percent A 0.4 % (0-0.5); Lymphocytes Percent Auto 13.9 % (18.3-44.2); Mean Corpuscular HGB Conc 33.1 g/dl (32-36); Mean Corpuscular Hemoglobin 33.9 pg (26-34); Mean Corpuscular Volume 102.4 fl (80-100); Mean Platelet Volume 10.9 fl (7.4-10.4); Monocytes Absolute Auto 0.8 K/mm3 (0.1-0.6); Neutrophils Absolute Auto 7.2 K/mm3 (1.3-6.7); Neutrophils Percent Auto 77.2 % (45.5-73.1); Platelet Count Result 170 k/mm3 (150-375); Red Blood Count 3.72 M/mm3 (4.6-6.20); Red Cell Distribution Width 11.9 % (11.5-14.5); White Blood Count 9.4 K/mm3 (4.5-10.0)
[2020-12-23 09:27] LABS: Alanine Aminotransferase 18 U/L (4-50); Albumin Level 3.3 g/dL (3.5-5.1); Alkaline Phosphatase 39 U/L (38-126); Anion Gap 5 mmol/L (8-16); Aspartate Amino Transferase 27 U/L (17-59); Bilirubin,Total 0.8 mg/dL (0.2-1.3); Blood Urea Nitrogen 22 mg/dL (9-20); Calcium 8.7 mg/dL (8.4-10.2); Carbon Dioxide 26 mmol/L (22-30); Chloride 108 mmol/L (98-107); Estimated CRCL calculation 45 ml/min; Estimated Glomerular Filt Rate 54; Glucose 83 mg/dL (75-110); Lipase 149 U/L (23-300); Potassium 4.3 mmol/L (3.4-5.0); Sodium 139 mmol/L (137-145)
--- NOTE | 2020-12-23 09:51 | PC.NURSE ---
called [facility] for bed status, no beds at this time, waiting for discharges [id number].
[2020-12-23 10:38] VITALS: BP 121/81; PULSE 80; RESP 18; O2SAT 96
[2020-12-23 14:37] VITALS: BP 129/77; PULSE 78; RESP 16; O2SAT 98
== END 2020-12-23 16:27 | disposition home or self-care (01) ==
PROVIDERS: General Practice; Emergency Provider Emergency Medicine; PCP Family Medicine
DX: N13.8 Other obstructive and reflux uropathy (principal); N20.1 Calculus of ureter; I69.920 Aphasia following unspecified cerebrovascular disease; R93.3 Abnormal findings on diagnostic imaging of other parts of digestive tract
CPT/HCPCS: 36415; 74177; 80053; 81001; 83690; 85025; 96361; 96374; 96375; 96376; 99284; J1170; J1885; J2405; J7030; Q9967

== ENCOUNTER 2021-05-22 07:08 | Outpatient (CLI) | payer BC, SELFPAY ==
--- NOTE | ~2021-05-22 | CT_ITS ---
EXAMINATION: CTA brain carotid EXAM DATE: 05/22/2021 07:49 INDICATION: Left-sided neck pain, carotid dissection. TECHNIQUE: Noncontrast head CT. Spiral CTA of the carotid arteries was performed with intravenous i njection 100 cc of Omnipaque 350. Axial, coronal, sagittal reformatted images reviewed. Additional r eformatted images created on dedicated 3-D workstation. NASCET comparable standard used to assess th e degree of arterial stenosis. Spiral CT angiogram cerebral arteries performed with the same intrave nous injection of contrast. Source images of the brain CTA transferred to dedicated workstation for 3 -D rotational image creation. Coronal, sagittal maximum intensity pixel images also reviewed. The d ose-length product (DLP) for this examination was 1926.62 mGy-cm. The exposure was tailored accordi ng to patient size, and iterative reconstruction (ASIR) was used as additional dose reduction techniq ue. Correlation made to head CT from 12/16/2019 FINDINGS: There is bilateral carotid bulb 0% stenosis. Carotid siphons also unremarkable. The right v ertebral artery is dominant. There is no carotid or vertebral basilar arterial dissection or fibromu scular dysplasia. Imaged portions of subclavian arteries also unremarkable. There are no cerebral art carmen aneurysms. There is symmetric cerebral artery arborization. The sagittal, transverse and sigmoid sinuses enhance normally, no venous sinus thrombosis. Internal cerebral veins also enhance normally. There is large old left middle cerebral artery distribution infarction, but new compared to 11/2019 CT . There is small old right cerebellar infarction. There is no acute intraparenchymal hemorrhage. No evidence of intraparenchymal brain mass lesion. No evidence of acute infarction. There is no mass e ffect or midline shift. There is no obstructive hydrocephalus suspected. There are no extra-axial co llections. Incidental Findings: None. IMPRESSION: 1. No acute carotid or intracranial findings. 2. Bilateral carotid 0% stenosis. 3. Large left MCA and small right cerebellar old infarctions. Reviewed, dictated and finalized at location A.
[2021-05-22 07:38] LABS: Estimated Glomerular Filt Rate > 60
== END 2021-05-22 07:09 | disposition home or self-care (01) ==
PROVIDERS: PCP Family Medicine
DX: I77.71 Dissection of carotid artery (principal); M54.2 Cervicalgia; Z86.73 Personal history of transient ischemic attack (TIA), and cerebral infarction without residual deficits
CPT/HCPCS: 70496; 70498; Q9967